=== PATIENT | male | born 1965 | race Caucasian/White ===

== ENCOUNTER → 2016-02-22 | Outpatient (CLI) | payer OTHER ==
[~2016-02-22] MED LIST: CEPHALEXIN500 M1 PO; DUO-KAPS1 CAP PO; FISH OIL1 IU PO; GARLIC OIL 101000 MG PO; IBUPROFEN600 MG PO; LISINOPRIL20 MG PO; NEURONTIN600 MG PO; NORCO 325 MG-7.1 TAB PO; TRIAMCINOLONE0.1% TP; TRICOR145 MG PO; TYLENOL PM EXT240 ML PO; ULTRAM 50MG TAB50 MG PO
== END ==
LOC: LAB 08:26
DX: I10 Essential (primary) hypertension (principal); E78.2 Mixed hyperlipidemia

== ENCOUNTER → 2016-02-23 | Outpatient (CLI) | payer OTHER | LOC: LAB 11:59 | DX: R73.9 Hyperglycemia, unspecified (principal) ==

== ENCOUNTER → 2017-08-10 | Outpatient (CLI) | payer OTHER ==
[2014-09-16 15:20] VITALS: BP 143/93
[2017-08-10 07:27] LABS: EOS # 0.2 (0.04-0.40); EOS % 2.4 % (0.0-4.0); HEMATOCRIT 45.2 % (42.0-52.0); HEMOGLOBIN 15.9 g/dL (13.5-18.0); LYMPH# 2.7 (1.50-4.00); MEAN CELL VOLUME 86 fl (78-100); MEAN CORPUSCULAR HEMOGLOBIN 30 pg (27-31); MEAN CORPUSCULAR HGB CONC 35 g/dL (33-37); MEAN PLATELET VOLUME 9.1 fl (7.4-10.4); MONO # 0.6 (0.20-0.80); NEU # 3.4 (1.40-6.50); PLATELET COUNT 335 K/mm3 (130-400); RED BLOOD COUNT 5.28 M/mm3 (4.20-5.60); RED CELL DISTRIBUTION WIDTH 12.1 % (11.5-14.5)
[2017-08-10 07:41] LABS: ALBUMIN 4.3 g/dL (3.5-5.0); BUN/CREATININE RATIO 23.8 (6.0-26.0); CALCIUM 9.4 mg/dL (8.4-10.2); POTASSIUM 4.5 mmol/L (3.6-5.0); TOTAL BILIRUBIN 0.5 mg/dL (0.2-1.3); TOTAL PROTEIN 7.8 g/dL (6.3-8.2)
[2017-08-10 08:31] LABS: ERYTHROCYTE SEDIMENTATION RATE 3 mm/hr (0-15)
== END ==
LOC: RAD 07:01
PROVIDERS: Family Medicine
DX: N44.2 Benign cyst of testis (principal); N49.2 Inflammatory disorders of scrotum; N43.3 Hydrocele, unspecified; I86.1 Scrotal varices; N50.89 Other specified disorders of the male genital organs; I10 Essential (primary) hypertension; E78.2 Mixed hyperlipidemia

== ENCOUNTER → 2018-10-09 | Outpatient (CLI) | payer OTHER ==
[2018-06-17 09:56] VITALS: BP 136/77
[~2018-10-09] MED LIST changes: +MELOXICAM15 MG PO; +NORCO 325 MG-51 TA1 PO
[2018-10-09 09:11] LABS: ALBUMIN 4.8 g/dL (3.5-5.0); POTASSIUM 4.1 mmol/L (3.5-5.1)
[2018-10-09 09:12] LABS: CALCIUM 10.3 mg/dL (8.3-10.5)
[2018-10-09 09:13] LABS: TOTAL PROTEIN 8.7 g/dL (6.4-8.3)
[2018-10-09 09:15] LABS: TOTAL BILIRUBIN 1.2 mg/dL (0.2-1.2)
== END ==
LOC: LAB 08:52
PROVIDERS: Family Medicine
DX: I10 Essential (primary) hypertension (principal); E78.2 Mixed hyperlipidemia; R73.9 Hyperglycemia, unspecified

== ENCOUNTER → 2018-10-29 | Outpatient (CLI) | payer OTHER ==
[2018-06-17 09:56] VITALS: BP 136/77
[2018-10-29 09:48] LABS: POTASSIUM 4.1 mmol/L (3.5-5.1)
[2018-10-29 09:49] LABS: CALCIUM 9.5 mg/dL (8.3-10.5)
== END ==
LOC: LAB 09:27
PROVIDERS: Family Medicine
DX: Z00.00 Encounter for general adult medical examination without abnormal findings (principal); Z12.5 Encounter for screening for malignant neoplasm of prostate; Z12.12 Encounter for screening for malignant neoplasm of rectum; E11.9 Type 2 diabetes mellitus without complications; E78.2 Mixed hyperlipidemia; I10 Essential (primary) hypertension; L30.8 Other specified dermatitis

== ENCOUNTER → 2019-01-03 | Outpatient (CLI) | payer OTHER ==
[2018-06-17 09:56] VITALS: BP 136/77
[2019-01-03 09:38] LABS: ALBUMIN 4.4 g/dL (3.5-5.0)
[2019-01-03 09:40] LABS: TOTAL PROTEIN 7.4 g/dL (6.4-8.3)
[2019-01-03 09:42] LABS: TOTAL BILIRUBIN 0.9 mg/dL (0.2-1.2)
[2019-01-03 09:46] LABS: DIRECT BILIRUBIN 0.3 mg/dL (0.0-0.5)
== END ==
LOC: LAB 09:20
PROVIDERS: Family Medicine
DX: E78.2 Mixed hyperlipidemia (principal); E11.9 Type 2 diabetes mellitus without complications; I10 Essential (primary) hypertension

== ENCOUNTER → 2020-01-13 | Outpatient (CLI) | payer OTHER ==
[2018-06-17 09:56] VITALS: BP 136/77
[2020-01-13 09:00] LABS: POTASSIUM 4.3 mmol/L (3.5-5.1)
[2020-01-13 09:01] LABS: ALBUMIN 4.6 g/dL (3.5-5.0)
[2020-01-13 09:02] LABS: CALCIUM 9.8 mg/dL (8.3-10.5)
[2020-01-13 09:03] LABS: TOTAL PROTEIN 7.9 g/dL (6.4-8.3)
[2020-01-13 09:05] LABS: TOTAL BILIRUBIN 0.9 mg/dL (0.2-1.2)
== END ==
LOC: LAB 08:22
PROVIDERS: Family Medicine
DX: Z12.5 Encounter for screening for malignant neoplasm of prostate (principal); E11.9 Type 2 diabetes mellitus without complications

== ENCOUNTER → 2020-04-30 | Outpatient (CLI) | payer OTHER ==
[2018-06-17 09:56] VITALS: BP 136/77
== END ==
LOC: LAB 09:20
DX: E11.9 Type 2 diabetes mellitus without complications (principal); E78.2 Mixed hyperlipidemia

== ENCOUNTER → 2021-04-21 | Outpatient (CLI) | payer OTHER ==
[2021-04-21 09:24] LABS: ALBUMIN 4.5 g/dL (3.5-5.0); POTASSIUM 4.2 mmol/L (3.5-5.1)
[2021-04-21 09:25] LABS: CALCIUM 9.9 mg/dL (8.3-10.5)
[2021-04-21 09:27] LABS: TOTAL PROTEIN 7.3 g/dL (6.4-8.3)
[2021-04-21 09:28] LABS: TOTAL BILIRUBIN 1.5 mg/dL (0.2-1.2)
== END ==
LOC: LAB 08:59
PROVIDERS: Family Medicine
DX: Z12.5 Encounter for screening for malignant neoplasm of prostate (principal); E78.2 Mixed hyperlipidemia; E11.9 Type 2 diabetes mellitus without complications

== ENCOUNTER → 2022-03-30 | Outpatient (CLI) | payer OTHER | LOC: LAB 09:29 | DX: E11.9 Type 2 diabetes mellitus without complications (principal); E78.2 Mixed hyperlipidemia; Z12.5 Encounter for screening for malignant neoplasm of prostate ==

== ENCOUNTER → 2023-04-17 | Outpatient (CLI) | payer OTHER | LOC: LAB 08:47 | DX: Z12.5 Encounter for screening for malignant neoplasm of prostate (principal); E11.9 Type 2 diabetes mellitus without complications; E78.2 Mixed hyperlipidemia ==

== ENCOUNTER → 2023-07-20 | Outpatient (CLI) | payer OTHER ==
[2023-09-07 11:16] LABS: CREATININE OTHER SOURCE 134.2
[2023-09-08 11:02] LABS: CALCIUM 9.6 mg/dL (8.3-10.5)
== END ==
LOC: LAB 10:30
PROVIDERS: Family Medicine
DX: I10 Essential (primary) hypertension (principal); E11.9 Type 2 diabetes mellitus without complications

== ENCOUNTER → 2023-11-02 | Outpatient (CLI) | payer OTHER ==
[2023-11-02 12:23] LABS: CALCIUM 9.7 mg/dL (8.3-10.5)
[2023-11-02 22:34] LABS: HEPATITIS C VIRUS ANTIBODY Negative (Nonreactiv)
== END ==
LOC: LAB 11:59
PROVIDERS: Family Medicine
DX: Z12.5 Encounter for screening for malignant neoplasm of prostate (principal); Z11.59 Encounter for screening for other viral diseases; Z11.4 Encounter for screening for human immunodeficiency virus [HIV]; E11.9 Type 2 diabetes mellitus without complications; E78.2 Mixed hyperlipidemia